=== PATIENT | female | born 1985 | race Caucasian/White ===

== ENCOUNTER 2016-08-20 08:59 | Emergency (ER) | payer BC ==
[2016-08-20 09:15] VITALS: BP 109/66
--- NOTE | 2016-08-20 09:30 | UC ---
Respiratory Complaint HPI - HPI Summary HPI Summary: cough off and on for a few weeks. this started again this morning and with some chest tightness. no pain or radiation. she has hx of reactive airway disease with needing bronchodilators with bronchitis. she also is a smoker. she has had nasal congestion as well. no fever or sob now at rest. - History of Current Complaint Chief Complaint: UCGeneralIllness Stated Complaint: CHEST,COUGH CONGESTION,NAUSEA Time Seen by Provider: 08/20/16 09:09 Hx Obtained From: Patient Hx Last Menstrual Period: 08/15/16 Onset/Duration: Lasting Hours Severity Initially: Moderate Severity Currently: None Character: Cough: Nonproductive Associated Signs And Symptoms: Positive: Negative - Allergies/Home Medications Allergies/Adverse Reactions: Allergies Allergy/AdvReac Type Severity Reaction Status Date / Time Cefprozil [From Cefzil] Allergy Intermediate Rash Verified 08/20/13 15:05 Home Medications: Home Medications Norgestimate-Ethinyl Estradiol [Trinessa Lo 0.18/0.215/0.25 mg-25 Mcg] 1 tab PO DAILY 08/20/16 [History Confirmed 08/20/16] PMH/Surg Hx/FS Hx/Imm Hx Previously Healthy: No - albuterol with cough/bronchitisi. Endocrine History Of: Denies: Diabetes, Thyroid Disease Cardiovascular History Of: Denies: Cardiac Disorders, Hypertension Respiratory History Of: Denies: COPD, Asthma GI/ History Of: Denies: Ulcer - Surgical History Surgical History: None - Family History Known Family History: Positive: None - no hx of asthma in the family. - Social History Lives: With Family Alcohol Use: Occasionally Substance Use Type: Marijuana Substance Use Comment - Amount & Last Used: occasional- last 6 months ago Smoking Status (MU): Current Some Day Smoker Type: Cigarettes Amount Used/How Often: occasional use - Immunization History Most Recent Influenza Vaccination: 2012 Review of Systems All Other Systems Reviewed And Are Negative: Yes Physical Exam Triage Information Reviewed: Yes Appearance: Well-Appearing, No Pain Distress, Well-Nourished, Obese Vital Signs: Initial Vital Signs Temp 98.5 F 08/20/16 09:07 Pulse 97 08/20/16 09:07 Resp 16 08/20/16 09:07 BP 109/66 08/20/16 09:07 Pulse Ox 99 08/20/16 09:07 Vital Signs Reviewed: Yes Eye Exam: Normal Eyes: Positive: Conjunctiva Clear, Conjunctiva Inflamed ENT: Positive: Normal ENT inspection, Hearing grossly normal, Pharynx normal, Pharyngeal erythema, Nasal congestion, Nasal drainage. Negative: TMs normal, TM bulging, TM dull Neck exam: Normal Neck: Positive: Supple, Nontender, No Lymphadenopathy. Negative: Nuchal Rigidity, Tenderness @, Enlarged Nodes @ Respiratory Exam: Normal Respiratory: Positive: Chest non-tender, Lungs clear, Normal breath sounds, No respiratory distress, No accessory muscle use. Negative: Respiratory distress Cardiovascular: Positive: RRR, No Murmur, Pulses Normal. Negative: Tachycardia Abdomen Description: Positive: Nontender, No Organomegaly, Soft Musculoskeletal Exam: Normal Musculoskeletal: Positive: Strength Intact, ROM Intact. Negative: No Edema Neurological Exam: Normal Psychological Exam: Normal UC Diagnostic Evaluation - Laboratory O2 Sat by Pulse Oximetry: 99 Respiratory Course/Dx - Course Course Of Treatment: reactive airway disaese or allergy type picture with intermittent and chronic symptoms. no signs of pe, pneumonia. - Differential Dx/Diagnosis Differential Diagnosis/HQI/PQRI: Airway Obstruction, Foreign Body, Aspiration, Asthma, Bronchitis, CHF, Pulmonary Edema, Influenza, Laryngitis, Lower Resp Infection, Pulmonary Embolism Provider Diagnoses: cough. congestion Discharge - Discharge Plan Condition: Good Disposition: HOME Prescriptions: Albuterol HFA INHALER* [Ventolin HFA Inhaler*] 1 puff INH Q4H PRN #1 mdi PRN Reason: Cough methylPREDNISolone TAB* [Medrol TAB*] 4 mg PO DAILY #21 tab Patient Education Materials: Acute Bronchitis (ED) Referrals: No Primary Care Phys,NOPCP [Primary Care Provider] - Additional Instructions: return here as we discussed for any worsening.
== END 2016-08-20 09:41 | disposition home or self-care (01) ==
LOC: UCCORT 08:59
DX: R05 Cough (principal); R07.89 Other chest pain; R09.89 Other specified symptoms and signs involving the circulatory and respiratory systems; Z88.1 Allergy status to other antibiotic agents; Z72.0 Tobacco use
CPT/HCPCS: 99212; G0463

== ENCOUNTER 2016-10-02 12:53 | Emergency (ER) | payer BC ==
[2016-10-02 13:24] VITALS: BP 104/57
--- NOTE | 2016-10-02 13:30 | UC ---
Lower Extremity/Ankle HPI - HPI Summary HPI Summary: right foot pain x 10 days pain started 10 days ago after running 5k + swelling lateral right foot , pain with walking, has been getting better over the past 5 days - History of Current Complaint Chief Complaint: UCLowerExtremity Stated Complaint: RIGHT FOOT PAIN Time Seen by Provider: 10/02/16 13:20 Hx Obtained From: Patient Hx Last Menstrual Period: 09/06/16 ?: No Onset/Duration: Sudden Onset, Lasting Days - 10, Still Present Severity Currently: Moderate Aggravating Factor(s): Standing, Ambulation Alleviating Factor(s): Rest, Elevation, Ice Able to Bear Weight: Yes - Allergies/Home Medications Allergies/Adverse Reactions: Allergies Allergy/AdvReac Type Severity Reaction Status Date / Time Cefprozil [From Cefzil] Allergy Intermediate Rash Verified 10/02/16 13:18 PMH/Surg Hx/FS Hx/Imm Hx Endocrine History Of: Denies: Diabetes, Thyroid Disease Cardiovascular History Of: Denies: Cardiac Disorders, Hypertension Respiratory History Of: Denies: COPD, Asthma GI/ History Of: Denies: Ulcer - Surgical History Surgical History: None - Family History Known Family History: Positive: None - no hx of asthma in the family. Negative: Diabetes - Social History Alcohol Use: Occasionally Substance Use Type: Marijuana Substance Use Comment - Amount & Last Used: occasional- last year Smoking Status (MU): Heavy Every Day Tobacco Smoker Type: Cigarettes Amount Used/How Often: 10 cigarettes daily - Immunization History Most Recent Influenza Vaccination: 2012 Review of Systems Constitutional: Negative Skin: Negative Eyes: Negative ENT: Negative Musculoskeletal: Other: - right foot pain All Other Systems Reviewed And Are Negative: Yes Physical Exam Triage Information Reviewed: Yes Appearance: Well-Appearing, No Pain Distress, Well-Nourished Vital Signs: Initial Vital Signs Temp 98.5 F 10/02/16 13:18 Pulse 62 10/02/16 13:18 Resp 16 10/02/16 13:18 BP 104/57 10/02/16 13:18 Pulse Ox 100 10/02/16 13:18 Vital Signs Reviewed: Yes Eye Exam: Normal Eyes: Positive: Conjunctiva Clear ENT: Positive: Normal ENT inspection, Hearing grossly normal, Pharynx normal Neck exam: Normal Respiratory: Positive: Chest non-tender, Lungs clear, Normal breath sounds Cardiovascular: Positive: RRR, No Murmur, Pulses Normal Musculoskeletal: Positive: Other: - right foot : mild swellig, no erythema , + tenderness 5th metatarsal, good ROM Lower Extremity Course/Dx - Differential Dx/Diagnosis Provider Diagnoses: contusion right foot Discharge - Discharge Plan Condition: Stable Disposition: HOME Patient Education Materials: Foot Contusion (ED) Referrals: Neyda Antonio MD [Primary Care Provider] - If Needed
--- NOTE | 2016-10-02 13:51 | RAD ---
INDICATION: Right fifth metatarsal pain COMPARISON: None TECHNIQUE: AP, lateral, and oblique views were obtained. FINDINGS: The bony structures, joint spaces, and soft tissues are normal for age. IMPRESSION: Negative examination.
== END 2016-10-02 14:13 | disposition home or self-care (01) ==
LOC: UCCORT 12:53
DX: S90.31XA Contusion of right foot, initial encounter (principal); X58.XXXA Exposure to other specified factors, initial encounter; Y93.02 Activity, running; Y92.9 Unspecified place or not applicable; Z88.1 Allergy status to other antibiotic agents; F17.210 Nicotine dependence, cigarettes, uncomplicated
CPT/HCPCS: 99211; G0463

== ENCOUNTER 2017-01-06 09:05 | Emergency (ER) | payer BC ==
--- NOTE | 2017-01-06 09:41 | UC ---
Throat Pain/Nasal Morris HPI - HPI Summary HPI Summary: Per dry curer "states she woke up with "yellow" drainage in bilateral eyes with redness. also c/o congestion, sore throat, headache, and sinus pressure x 4 days. " Has had sinus infections in past and feels consistent. felt feverish 3 days ago. + crusting d/c b/l eyes. denies . here with . no cough. - History of Current Complaint Chief Complaint: UCEye Stated Complaint: SINUS,EYE COMPLAINT Time Seen by Provider: 01/06/17 09:39 Hx Last Menstrual Period: 12/31/16 - Allergies/Home Medications Allergies/Adverse Reactions: Allergies Allergy/AdvReac Type Severity Reaction Status Date / Time Cefprozil [From Cefzil] Allergy Intermediate Rash Verified 01/06/17 09:36 PMH/Surg Hx/FS Hx/Imm Hx Previously Healthy: Yes - Surgical History Surgical History: None - Family History Known Family History: Positive: None - no hx of asthma in the family. Negative: Cardiac Disease, Diabetes - Social History Alcohol Use: Rare Substance Use Type: None, Marijuana Substance Use Comment - Amount & Last Used: occasional- last year Smoking Status (MU): Heavy Every Day Tobacco Smoker Type: Cigarettes Amount Used/How Often: 3-4 per day - Immunization History Most Recent Influenza Vaccination: 2013 Review of Systems Constitutional: Negative Skin: Negative Eyes: Drainage, Eye Redness, Photophobia, Other - no pain ENT: Negative Respiratory: Negative Cardiovascular: Negative Gastrointestinal: Negative Genitourinary: Negative Motor: Negative Neurovascular: Negative Musculoskeletal: Negative Neurological: Negative Psychological: Negative All Other Systems Reviewed And Are Negative: Yes Physical Exam Triage Information Reviewed: Yes Appearance: Well-Appearing, No Pain Distress, Well-Nourished - very -pleasant Vital Signs: Initial Vital Signs Temp 98.6 F 01/06/17 09:30 Pulse 71 01/06/17 09:30 Resp 16 01/06/17 09:30 BP 101/64 01/06/17 09:30 Pulse Ox 98 01/06/17 09:30 Vital Signs Reviewed: Yes Eyes: Positive: Conjunctiva Inflamed - + mild d/c/ PERRL ENT: Positive: Hearing grossly normal, Pharyngeal erythema, Nasal congestion, Nasal drainage, TMs normal, Other: - b/l maxillary tenderness. Negative: TM bulging, TM dull, TM red, Tonsillar swelling, Tonsillar exudate Neck exam: Normal Neck: Positive: Supple, Nontender, No Lymphadenopathy Respiratory Exam: Normal Respiratory: Positive: Chest non-tender, Lungs clear, Normal breath sounds, No respiratory distress, No accessory muscle use Cardiovascular Exam: Normal Cardiovascular: Positive: RRR, No Murmur, Pulses Normal Abdominal Exam: Normal Abdomen Description: Positive: Nontender, Soft Bowel Sounds: Positive: Present Musculoskeletal Exam: Normal Neurological Exam: Normal Psychological Exam: Normal Skin Exam: Normal Throat Pain/Nasal Course/Dx - Course Course Of Treatment: contagious until sx resolve - Differential Dx/Diagnosis Differential Diagnosis/HQI/PQRI: Sinusitis, URI Provider Diagnoses: sinusitis & b/l conjunctivitis Discharge - Discharge Plan Condition: Stable Disposition: HOME Prescriptions: Amoxicillin PO (*) [Amoxicillin 875 MG (*)] 875 mg PO BID #20 tab Gentamicin 0.3% OPHTH.SOLN* 1 drop BOTH EYES Q4H #1 btl Patient Education Materials: Sinusitis (ED), Conjunctivitis (ED) Referrals: Neyda Antonoi MD [Primary Care Provider] - 3 Days Additional Instructions: Make sure to use back up control while on abx. also take a probiotic daily while on antibiotics. Make sure not to use contact lenses or make up until your symptoms resolve or at least 5 days.
[2017-01-06 10:01] VITALS: BP 101/64
[2017-01-06] MEDS ORDERED: Gentamicin 0.3% OPHTH.SOLN* 5 ML BTL BOTH EYES SCH (10:30)
== END 2017-01-06 10:33 | disposition home or self-care (01) ==
LOC: UCCORT 09:05
DX: J32.9 Chronic sinusitis, unspecified (principal); H10.9 Unspecified conjunctivitis; Z72.0 Tobacco use
CPT/HCPCS: 99212; G0463

== ENCOUNTER 2018-03-31 09:30 | Emergency (ER) | payer BC ==
[2018-03-31 09:56] VITALS: BP 104/68
[2018-03-31] MEDS ORDERED: predniSONE TAB* 20 MG PO ONE (10:54)
[2018-03-31] MEDS ORDERED: Albuterol/Ipratropium NEB.SOL* Albuterol 2.5 MG/Ipratropium 0.5 MG 3 ML INH ONE (10:55)
--- NOTE | 2018-03-31 10:55 | UC ---
Respiratory Complaint HPI - HPI Summary HPI Summary: 33 y/o male presents to the urgent care c/o nasal congestion, productive cough w / yellowish phlegm for the past week. Pt states PMHX of MS and took her injection due to her symptoms. Symptoms started w/ a common cold and watery diarrhea. Co-workers had similar symptoms.Diarrhea lasted for 2 days. Pt states cough has worsen for the past 2 days since she had been wheezing at night time w/o being able to sleep well. Pt has taken Mucinex PO to alleviate cough. Pt denies fever, CASTREJON, SOB, chest pain, abdominal pain, N/V/D. - History of Current Complaint Chief Complaint: UCRespiratory Stated Complaint: COUGH Time Seen by Provider: 03/31/18 10:41 Hx Obtained From: Patient Hx Last Menstrual Period: 03/10/18 ?: No Onset/Duration: Gradual Onset, Lasting Days - 4 days, Still Present, Worse Since - yesterday Timing: Intermittent Episodes Severity Initially: Mild Severity Currently: Moderate Pain Intensity: 0 Pain Scale Used: 0-10 Numeric Character: Cough: Productive, Sputum Description: - yellowish Aggravating Factors: Recumbent Position Alleviating Factors: Bronchodilator Associated Signs And Symptoms: Positive: Chills, Wheezing, URI, Nasal Congestion , Sinus Discomfort - Risk Factors Pulmonary Embolism Risk Factors: Negative Cardiac Risk Factors: Negative Pseudomonas Risk Factors: Negative Tuberculosis Risk Factors: Negative - Allergies/Home Medications Allergies/Adverse Reactions: Allergies Allergy/AdvReac Type Severity Reaction Status Date / Time cefprozil [From Cefzil] Allergy Rash Verified 03/31/18 09:50 Home Medications: Home Medications Dextromethorphan/Benzocaine [Cepacol Sorethroat-Cough Mike] 1 each PO Q2H PRN [History Confirmed 03/31/18] GuaiFENesin DM* [Robitussin DM*] 10 ml PO Q6H PRN 03/31/18 [History Confirmed ] Interferon Beta-1A/Albumin [Rebif 44 Mcg/0.5 ml Syringe] 44 mcg SQ SEE INSTRUCTIONS 03/31/18 [History Confirmed 03/31/18] guaiFENesin ER TAB [Mucinex*] 600 mg PO BID PRN 03/31/18 [History Confirmed ] PMH/Surg Hx/FS Hx/Imm Hx Previously Healthy: Yes Other Neurological History: MS - Surgical History Surgical History: None - Family History Known Family History: Positive: Cardiac Disease Negative: Diabetes - Social History Occupation: Employed Full-time Lives: With Family Alcohol Use: Rare Substance Use Type: Marijuana Substance Use Comment - Amount & Last Used: Medical Smoking Status (MU): Light Every Day Tobacco Smoker Type: Cigarettes Amount Used/How Often: 1/4 PPD Length of Time of Smoking/Using Tobacco: Since Age 20 - Immunization History Most Recent Influenza Vaccination: 2012 Review of Systems Constitutional: Chills, Fatigue Skin: Negative Eyes: Negative ENT: Nasal Discharge, Sinus Congestion Respiratory: Cough - productive, Other - wheezing Cardiovascular: Negative Gastrointestinal: Diarrhea Genitourinary: Negative Motor: Negative Neurovascular: Negative Musculoskeletal: Negative Neurological: Headache Psychological: Negative Is Patient Immunocompromised?: No All Other Systems Reviewed And Are Negative: Yes Physical Exam - Summary Physical Exam Summary: Vital Signs Reviewed: Yes General: well developed, well nourished female sitting in the examining table w/ o any apparent distress Eyes: Positive: Conjunctiva Clear - PERRLA, EOMI, fundi grossly normal ENT: Positive: Normal ENT inspection, Hearing grossly normal, Pharynx normal, Nasal congestion - edematous and erythematous nasal mucosa, Nasal drainage - yellowish drainage, TMs normal. Negative: Tonsillar swelling, Tonsillar exudate Neck: Positive: Supple, Nontender, No Lymphadenopathy Respiratory: no orthopnea or dyspnea. Able to speak in full sentences, no retractions or accessory muscle use, no tripod position, stridor, or head bobbing. Positive breath sounds bilaterally. diffuse scattered wheezing and rhonchi on b/L lungs, no crackles or rales. Cardiovascular: Positive: RRR, No Murmur, Pulses Normal, Brisk Capillary Refill Abdomen Description: Positive: Nontender, No Organomegaly, Soft. Negative: CVA Tenderness (R), CVA Tenderness (L) Bowel Sounds: Positive: Present Musculoskeletal Exam: Normal Musculoskeletal: Positive: Strength Intact, ROM Intact, No Edema Neurological Exam: Normal Psychological Exam: Normal Skin Exam: Normal Triage Information Reviewed: Yes Vital Signs: Initial Vital Signs Temp 98.3 F 03/31/18 09:48 Pulse 80 03/31/18 09:48 Resp 18 03/31/18 09:48 BP 104/68 03/31/18 09:48 Pulse Ox 97 03/31/18 09:48 Diagnostic Evaluation - Laboratory O2 Sat by Pulse Oximetry: 97 Respiratory Course/Dx - Course Course Of Treatment: 33 y/o male presents to the urgent care c/o nasal congestion, productive cough w/ yellowish phlegm for the past week. Pt states PMHX of MS and took her injection due to her symptoms. Symptoms started w/ a common cold and watery diarrhea. Co-workers had similar symptoms.Diarrhea lasted for 2 days. Pt states cough has worsen for the past 2 days since she had been wheezing at night time w/o being able to sleep well. Pt has taken Mucinex PO to alleviate cough. Pt denies fever, CASTREJON, SOB, chest pain, abdominal pain, N/V/D. Hx obtained. Pt w/ Diffuse scattered wheezes and rhonchi on bilaterally lungs on examination. O2Sat:97%, Chest X-ray ordered: No acute cardiopulmonary disease observed. Pt given Prednisone PO and Duoneb Treatment to alleviate symptoms. Pt tolerated well treatment and lungs improved,and wheezing cleared.O2Sat:98%. Patient is an heavy everyday smoker. Pt w/ acute bronchitis. Pt prescribed Doxycycline PO, Prednisone taper dose, Albuterol inhaler and advised to continue w/ MUcinex PO to alleviate symptoms as directed below. The patient was recommended to increase fluid intake w/ Gatorade or Pedialyte , rest and eat well. Take medications as recommended. Also to return to the clinic or go to the nearest ER if symptoms do not improve or worsen. D/C instructions expalined. Patient understood and agree w / plan of care. Pt left clinic hemodynamically stable , A&OX3. - Differential Dx/Diagnosis Differential Diagnosis/HQI/PQRI: Asthma, Bronchitis, Influenza, Laryngitis, Sinusitis, Other - pneumonia, gastroenteritis, diarrhea Provider Diagnoses: 1- Acute bronchitis. 2- Wheezing Discharge - Sign-Out/Discharge Documenting (check all that apply): Patient Departure - D/c home All imaging exams completed and their final reports reviewed: Yes - Discharge Plan Condition: Stable Disposition: HOME Prescriptions: Albuterol HFA INHALER* [Ventolin HFA Inhaler*] 1 - 2 puff INH Q6H PRN #1 mdi PRN Reason: Wheezing DOXYcycline CAP(*) [DOXYcycline 100MG CAP(*)] 100 mg PO BID #20 cap predniSONE TAB* [Deltasone 20 MG TAB*] 20 mg PO DAILY #8 tab Patient Education Materials: Acute Bronchitis (ED), Acute Diarrhea (ED) Forms: *Work Release Referrals: [facility] [place] [facility] [Outside] Additional Instructions: 1-Please take full course of antibiotic to avoid resistance. Take Prednisone taper dose as directed starting tomorrow. First dose given today 2-Continue taking Mucinex PO and use the albuterol inhaler to alleviate cough. Increase fluid intake, rest and eat well. 3- If symptoms do not improve or worsen or your develop SOB with fever and severe wheezing please go immediately to the ER further evaluation and treatment. 4- F/u with your PCP in 3 days if not improvement of symptoms for further management. - Billing Disposition and Condition Condition: STABLE Disposition: Home - Attestation Statements Provider Attestation: Per institutional requirements, I have reviewed the chart, however, I was not consulted specifically or made aware of this patient by the midlevel provider. I did not personally evaluate, interact with , or disposition this patient.
--- NOTE | 2018-03-31 11:13 | RAD ---
Indication: Productive cough, wheezing. 2 views of the chest including dual energy PA views demonstrate no mediastinal shift. Heart is of normal size and configuration. Lung celaya are clear. IMPRESSION: No active cardiopulmonary disease is noted.
== END 2018-03-31 11:57 | disposition home or self-care (01) ==
LOC: UCCORT 09:30
DX: J20.9 Acute bronchitis, unspecified (principal); R06.2 Wheezing; Z88.1 Allergy status to other antibiotic agents; F17.210 Nicotine dependence, cigarettes, uncomplicated
CPT/HCPCS: 71046; 99212; A9270-GY; G0463; J7512

== ENCOUNTER 2019-01-01 08:51 | Emergency (ER) | payer BC ==
[2019-01-01 09:04] VITALS: BP 106/53
--- NOTE | 2019-01-01 09:16 | ED ---
Lower Extremity - HPI Summary HPI Summary: 33 yr old female with the complaint of left foot pain. Onset last night when tripped over cat, and she stubbed her left foot. Pain is mostly over the 2nd toe and over metatarsal heads 1,2,3,4. Hurts worse to bear weight. She has associated bruising. She has pain the is moderate. - History of Current Complaint Chief Complaint: UCLowerExtremity Stated Complaint: LT FOOT INJURY Time Seen by Provider: 01/01/19 09:07 Hx Last Menstrual Period: 3 weeks ago Pain Intensity: 5 - Allergies/Home Medications Allergies/Adverse Reactions: Allergies Allergy/AdvReac Type Severity Reaction Status Date / Time albumin human Allergy Rash Verified 01/01/19 09:04 [From Rebif (with albumin)] cefprozil [From Cefzil] Allergy Rash Verified 03/31/18 09:50 interferon beta-1a Allergy Rash Verified 01/01/19 09:04 [From Rebif (with albumin)] Home Medications: Home Medications Cholecalciferol TAB* [Vitamin D TAB*] 4,000 unit PO DAILY 01/01/19 [History Confirmed 01/01/19] Multivit with Calcium,Iron,Min [Multiple Vitamins For Women] 1 each PO 01/01/19 [History] PMH/Surg Hx/FS Hx/Imm Hx Endocrine/Hematology History: Denies: Hx Diabetes, Hx Thyroid Disease Cardiovascular History: Denies: Hx Hypertension Respiratory History: Denies: Hx Asthma, Hx Chronic Obstructive Pulmonary Disease (COPD) GI History: Denies: Hx Ulcer Infectious Disease History: No Infectious Disease History: Reports: Hx Shingles - Dr. Chance 1999 Denies: Hx Hepatitis, Hx Human Immunodeficiency Virus (HIV), Traveled Outside the [place] in Last 30 Days - Family History Known Family History: Positive: None - no hx of asthma in the family., Cardiac Disease Negative: Diabetes - Social History Occupation: Employed Full-time Alcohol Use: Rare Substance Use Type: Reports: Marijuana Substance Use Comment - Amount & Last Used: Medical Smoking Status (MU): Light Every Day Tobacco Smoker Type: Cigarettes Amount Used/How Often: 1/4 PPD Length of Time of Smoking/Using Tobacco: Since Age 20 Review of Systems Constitutional: Negative Positive: Other - foot pain All Other Systems Reviewed And Are Negative: Yes Physical Exam Triage Information Reviewed: Yes Vital Signs On Initial Exam: Initial Vitals Temp Pulse Resp BP Pulse Ox 97.1 F 62 18 106/53 100 01/01/19 08:58 01/01/19 08:58 01/01/19 08:58 01/01/19 08:58 01/01/19 08:58 Vital Signs Reviewed: Yes Appearance: Positive: Well-Appearing, No Pain Distress Head/Face: Positive: Normal Head/Face Inspection Eyes: Positive: EOMI, BRIAN ENT: Positive: Normal ENT inspection Neck: Positive: Nontender Respiratory/Lung Sounds: Positive: Clear to Auscultation, Breath Sounds Present Cardiovascular: Positive: Pulses are Symmetrical in both Upper and Lower Extremities - left DP and PT pulses good Abdomen Description: Negative: Distended Musculoskeletal: Positive: Other - left foot with bruise over the 2nd toe and STS. There is mild tenderness over the 1,2,3,4 metatarsal heads. Neurological: Positive: Sensory/Motor Intact, Alert, Oriented to Person Place, Time, CN Intact II-III Psychiatric: Positive: Normal - [place] Coma Scale Best Eye Response: 4 - Spontaneous Best Motor Response: 6 - Obeys Commands Best Verbal Response: 5 - Oriented Coma Scale Total: 15 Diagnostics - Vital Signs Vital Signs Temp Pulse Resp BP Pulse Ox 01/01/19 08:58 97.1 F 62 18 106/53 100 - Laboratory Lab Statement: Any lab studies that have been ordered have been reviewed, and results considered in the medical decision making process. - Radiology left foot Radiology Interpretation Completed By: Radiologist - nad Lower Extremity Course/Dx - Course Course Of Treatment: 33 yr old with trauma left foot. - Diagnoses Provider Diagnoses: Contusion of left foot Discharge - Sign-Out/Discharge Documenting (check all that apply): Patient Departure All imaging exams completed and their final reports reviewed: Yes - Discharge Plan Condition: Good Disposition: HOME Patient Education Materials: Foot Contusion (ED) Referrals: No Primary Care Phys,NOPCP [Primary Care Provider] - Vivek San MD [Medical Doctor] - - Billing Disposition and Condition Condition: GOOD Disposition: Home
== END 2019-01-01 10:06 | disposition home or self-care (01) ==
LOC: UCCORT 08:51
DX: S90.32XA Contusion of left foot, initial encounter (principal); W01.0XXA Fall on same level from slipping, tripping and stumbling without subsequent striking against object, initial encounter; W22.8XXA Striking against or struck by other objects, initial encounter; Y92.9 Unspecified place or not applicable; F17.210 Nicotine dependence, cigarettes, uncomplicated
CPT/HCPCS: 99211; G0463